=== PATIENT | male | born 1985 | race Caucasian/White ===

== ENCOUNTER 2022-10-21 13:28 | Day surgery (SDC) | payer OTHER ==
[~2022-10-21] VITALS: Ht 175.3 cm; Wt 90.9 kg
[2022-10-21] MEDS ORDERED: PANT20 PO (13:47)
[2022-10-21] MEDS ORDERED: VITAMIN D32000 UNI1 PO (13:47)
[2022-10-21] MEDS ORDERED: FISH OIL 1,2001 EAC7 (13:48)
[2022-10-21 15:36] VITALS: BP 104/56
--- NOTE | 2022-10-21 15:38 | NUR ---
10/21/22 1537 GIANNA VARELA IV REMOVED. WNL. DEVAUGHN WELL. CANNULA INTACT
--- NOTE | 2022-10-21 15:40 | NUR ---
10/21/22 1540 GIANNA VARELA 3MG VERSED GIVEN PRIOR TO PROCEDURE
== END 2022-10-21 15:35 | disposition home or self-care (01) ==
LOC: ORSCSDS 13:28
PROVIDERS: Internal Medicine Gastroenterology
PROC: 0DB68ZX Excision of Stomach, Via Natural or Artificial Opening Endoscopic, Diagnostic (ICD-10-PCS; principal; 2022-10-21 15:30)
PROC: 0DB98ZX Excision of Duodenum, Via Natural or Artificial Opening Endoscopic, Diagnostic (ICD-10-PCS; principal; 2022-10-21 15:30)
DX: K21.00 Gastro-esophageal reflux disease with esophagitis, without bleeding (principal); K44.9 Diaphragmatic hernia without obstruction or gangrene; B96.81 Helicobacter pylori [H. pylori] as the cause of diseases classified elsewhere; F43.10 Post-traumatic stress disorder, unspecified; G47.30 Sleep apnea, unspecified; K58.1 Irritable bowel syndrome with constipation; R10.9 Unspecified abdominal pain; F17.210 Nicotine dependence, cigarettes, uncomplicated; Z79.899 Other long term (current) drug therapy
CPT/HCPCS: 88305; 88342; J0461; J2250; J2405; J2704; J7120; Q9968

== ENCOUNTER 2023-03-10 08:56 | Day surgery (SDC) | payer OTHER ==
[~2023-03-10] VITALS: Ht 175.3 cm; Wt 87.6 kg
[~2023-03-10 08:56] MED LIST: FISH OIL 1,2001 EAC7; PANT20 PO; VITAMIN D32000 UNI1 PO
[2023-03-10] MEDS ORDERED: OMEP20ER (09:37)
[2023-03-10 11:22] VITALS: BP 109/69
== END 2023-03-10 11:31 | disposition home or self-care (01) ==
LOC: ORSCSDS 08:56
PROVIDERS: Internal Medicine Gastroenterology
PROC: 0DJD8ZZ Inspection of Lower Intestinal Tract, Via Natural or Artificial Opening Endoscopic (ICD-10-PCS; principal; 2023-03-10 10:30)
DX: K57.30 Diverticulosis of large intestine without perforation or abscess without bleeding (principal); Z83.719 Family history of colon polyps, unspecified; G47.33 Obstructive sleep apnea (adult) (pediatric); K58.1 Irritable bowel syndrome with constipation; K21.9 Gastro-esophageal reflux disease without esophagitis; F43.10 Post-traumatic stress disorder, unspecified; F17.210 Nicotine dependence, cigarettes, uncomplicated; Z79.899 Other long term (current) drug therapy
CPT/HCPCS: J2704; J7120

== ENCOUNTER 2024-05-03 10:56 | Day surgery (SDC) | payer OTHER ==
[~2024-05-03] VITALS: Ht 175.3 cm; Wt 92.5 kg
[2024-05-03] VITALS (11 sets, daily range): BP systolic 117–140; BP diastolic 74–104
[~2024-05-03 10:56] MED LIST changes: +OMEP20ER
[2024-05-03] MEDS ORDERED: Lactated Ringer's 1,000 ML IV SCH (11:25)
--- NOTE | 2024-05-03 11:36 | NUR ---
Ambulatory in Day Surgery. History, Chart, Medications and Allergies reviewed before start of procedure. Lungs clear T/O to Auscultation. Patient REPORTS LAST SIP OF WATER AROUND 0945. ANESTHESIA AWARE, OKAY TO PROCEED PER ANESTHESIA. Pre-Op teaching done. Pt verbalizes understanding. Patient States Post-Procedure ride home has been arranged.
[2024-05-03] MEDS ORDERED: propofoL 20 ML IV ONE (11:56)
--- NOTE | 2024-05-03 12:01 | NUR ---
05/03/24 1201 Clint Nguyễn CONFIRMED AND REVIEWED H&P, MEDCICATIONS, ALLERGIES, MEDICAL HISTORY, RESPIRATORY HISTORY, VITAL SIGNS, 3-LEAD EKG, CONSENTS, AND PHYSICIAN ORDERS. PATIENT CONFIRMS NPO STATUS AND AGREES WITH SCHEDULED PROCEDURE. MONITOR INTACT WITH CONTINUOUS PULSE OXIMETRY, CAPNOGRAPHY, 3-LEAD EKG, INTERMITTENT BP. SUPPLEMENTAL O2 TO BE TITRATED THROUGHOUT PROCEDURE TO MAINTAIN O2 SATURATION ABOVE 90%. PATIENT DETERMINED TO BE ASA APPROPRIATE FOR PROPOFOL SEDATION PRIOR TO START OF PROCEDURE BY DR. KAUFFMAN.
--- NOTE | 2024-05-03 12:26 | NUR ---
REPORT RECEIVED FROM DAWIT JANSEN. VSS. PT ON RA. PT A&OX4. PT ABLE TO REPOSITION SELF IN BED. PT REQUESTING PO FLUIDS AND TOLERATING THEM WELL. PT DENIES PAIN, NASUEA OR OTHER DISCOMFORTS.
--- NOTE | 2024-05-03 12:33 | NUR ---
REPORT GIVEN TO JEMIMA JANSEN TO ASSUME CARE OF PT AT THIS TIME.
--- NOTE | 2024-05-03 12:48 | NUR ---
DISCHARGE PT A&OX4/VSS/RA/EYES OPEN/FOLLOWS COMMANDS/C&DBS/TALKING/PLEASANT, DENIES PAIN, DENIES NAUSEA, IV DC'D, DC INS PROVIDED/COPY SENT WITH PT, LEFT VIA WC WITH RN TO GO HOME WITH DAD/LEAD MACHINIST WITH ALL PERSONAL POSSESSIONS
== END 2024-05-03 23:00 | disposition home or self-care (01) ==
LOC: ORD 10:56 → ORSCMMR 10:56 → ORD 10:57 → ORSCMMR 23:00 → ORD 23:00
PROVIDERS: Internal Medicine Gastroenterology
PROC: 0DJ08ZZ Inspection of Upper Intestinal Tract, Via Natural or Artificial Opening Endoscopic (ICD-10-PCS; principal; 2024-05-03 13:30)
DX: K21.9 Gastro-esophageal reflux disease without esophagitis (principal); R13.10 Dysphagia, unspecified; F43.10 Post-traumatic stress disorder, unspecified; G47.33 Obstructive sleep apnea (adult) (pediatric); F17.210 Nicotine dependence, cigarettes, uncomplicated
CPT/HCPCS: J2704; J7120